=== PATIENT | male | born 1960 | race Caucasian/White ===

== ENCOUNTER → 2019-08-05 | Outpatient (CLI) | payer MEDICARE ==
[~2019-08-05] MED LIST: ALDACTONE 100M100 MG PO; ALDACTONE50 MG PO; ENULOSE10 GM/15 M PO; INDERAL80 MG PO; LASIX 40MG TABL40 MG PO; LASIX20 MG PO; LISINOPRIL; LORTAB 5/500 501 TAB PO; METOCLOPRAMIDE5 MG PO; PRILOSEC 20MG20 MG PO; PROPRANOLOL HCL40 MG PO; PROPRANOLOL10 MG PO; TENORMIN 5050 MG/TAB PO; VOLTAREN75 MG PO
== END ==
LOC: COL.RAD 08-03 09:45
DX: K70.30 Alcoholic cirrhosis of liver without ascites (principal); K82.8 Other specified diseases of gallbladder